=== PATIENT | female | born 1955 | race Caucasian/White ===

== ENCOUNTER 2016-06-18 07:03 | Day surgery (SDC) | payer BC ==
--- NOTE | 2016-05-31 16:45 | HP ---
ADMITTING HISTORY AND PHYSICAL: DATE OF ADMISSION/OPERATION: 06/18/16 ADMITTING DIAGNOSIS: Right renal calculus. PLANNED PROCEDURE: Shock wave lithotripsy of right renal calculus. SURGEON: Dr. Zimmerman. ADMITTING HISTORY AND PHYSICAL: Alix Millard is a 61-year-old lady with a history of recurrent renal calculi. She recently underwent a followup ultrasound, which showed that a previously noted calculus in the right kidney had increased in size. On the most recent ultrasound on 05/08/16, this was measured at being approximately 1.6 cm. KUB x-ray was obtained which showed the calculus to be smaller, so it is possible that the calculus may have a component of calcium and possibly uric acid which may make it appear bigger on the ultrasound than on the x-ray. In any case, because of the significant increase in size, she is now being brought in for shock wave lithotripsy after thorough discussion of the procedure and possible risks including bleeding, infection, injury to the kidney, and incomplete fragmentation. PAST MEDICAL HISTORY: Significant for renal calculi and environmental allergies. MEDICATIONS ON ADMISSION: Aixa-D once daily. ALLERGIES: SULFA. PHYSICAL EXAMINATION GENERAL: Reveals a pleasant, healthy-appearing lady. VITAL SIGNS: Blood pressure is 102/62, pulse 105 per minute, regular, oxygen saturation 95% on room air. LUNGS: Clear bilaterally. CARDIOVASCULAR: Regular rate and rhythm. S1, S2. ABDOMEN: Soft without masses. IMPRESSION AND PLAN: A 61-year-old lady with a right renal calculus which has increased in size. Planned procedure is shock wave lithotripsy of right renal calculus. I have discussed the procedure and possible risks in detail with Alix and she appears to understand and wishes to proceed as planned. [id number]/[facility] #: [id number] MTDD
[~2016-06-18 07:03] MED LIST: Buffered Lidocaine 1% SYRIN* 3 ML/SYR SYRINGE INTRADERM ONE; Dexamethasone IV* 4 MG/ML 1 ML (4 MG) IV SLOW PU ONE
[2016-06-18] MEDS ORDERED: cefTRIAXone(*) 2 GM ADDV.VIAL IVPB ONE (07:30)
[2016-06-18] MEDS ORDERED: Dexamethasone IV* 4 MG/ML 1 ML (4 MG) ONE (07:34)
--- NOTE | 2016-06-18 08:01 | RAD ---
INDICATION: Shockwave lithotripsy. COMPARISON: Comparison is made with a prior CT of the abdomen and pelvis from March 27 2014 and a prior KUB exam from May 29, 2016. TECHNIQUE: Frontal supine films of the abdomen were obtained. FINDINGS: The small bowel and colon appear nondistended. There is a 6 mm calcific density which projects over the lower pole of the right kidney most consistent with a renal calculus which is unchanged from the prior study. IMPRESSION: RIGHT RENAL CALCULUS.
[2016-06-18] MEDS ORDERED: fentaNYL* 50 MCG/ML 2 ML VIAL (100 MCG VIAL) IV PRN (09:09)
[2016-06-18] MEDS ORDERED: oxyCODONE/Acetamin 5/325 MG* TAB PO PRN (09:09)
[2016-06-18] MEDS ORDERED: HYDROcodone/ACETAMIN 5-325 MG* 1 TAB PO PRN (09:09)
[2016-06-18] MEDS ORDERED: PROCHLORPERAZINE INJ 5 MG/ML 2 ML VIAL IV PRN (09:09)
[2016-06-18] MEDS ORDERED: fentaNYL* 50 MCG/ML 2 ML VIAL (100 MCG VIAL) ONE (09:13)
[2016-06-18] MEDS ORDERED: Propofol* 10 MG/ML 20 ML BTL IV PUSH ONE (09:13)
[2016-06-18] MEDS ORDERED: Lidocaine 2% PF * 5 ML VIAL ONE (09:13)
[2016-06-18] MEDS ORDERED: Ondansetron INJ* 2 MG/ML VIAL ONE (09:36)
[2016-06-18] MEDS ORDERED: Furosemide IV* 10 MG/ML 2 ML VIAL (20 MG) ONE (09:43)
[2016-06-18 11:03] VITALS: BP 124/72
--- NOTE | 2016-06-18 22:51 | OP ---
DATE OF OPERATION: 06/18/16 - [facility] DATE OF : 53 SURGEON: Dr. Zimmerman. ANESTHESIOLOGIST: Dr. Lozano. ANESTHESIA: General. PRE-OP DIAGNOSIS: Right renal calculus. POST-OP DIAGNOSIS: Right renal calculus. OPERATIVE PROCEDURE: Shockwave lithotripsy of right renal calculus. COMPLICATIONS: None. POSTOPERATIVE CONDITION: Stable. INDICATIONS: Alix Millard is a 61-year-old lady who was recently evaluated and noted to have increase in the size of a previously detected right renal calculus. She desires treatment of the same and is now being brought in for shockwave lithotripsy. DESCRIPTION OF PROCEDURE: After induction of general anesthesia, the patient was placed on the lithotripsy table in the supine position. The calculus which was smaller on x-ray than on ultrasound was visualized on fluoroscopy and shockwave lithotripsy was commenced at a rate of 60 shocks per minute. After the initial 300 shocks, there was a brief pause in lithotripsy in an effort to minimize any potential trauma to the kidney. Lithotripsy was then resumed and periodic imaging revealed good localization and fragmentation. A total of 1600 shocks were administered. The patient tolerated the procedure satisfactorily and was transferred back to recovery area in stable condition. [id number]/[facility] #: [id number] MTDD
== END 2016-06-18 11:07 | disposition home or self-care (01) ==
LOC: OR 07:03
PROVIDERS: ATTEND Urology
DX: N20.0 Calculus of kidney (principal)
CPT/HCPCS: 74000; J0696; J1100; J1940; J2405; J2704; J3010

== ENCOUNTER 2016-11-25 10:34 | Emergency (ER) | payer BC ==
[2016-11-25 10:52] VITALS: BP 130/68
--- NOTE | 2016-11-25 12:21 | UC ---
Respiratory Complaint HPI - HPI Summary HPI Summary: history of environmental allergies treated by Dr. Martin with injections, and uses antihistamines. 2 days of increasing drainage and malaise, with some heaviness around the right muslim. Right eye tearing and injection with tacky discharge. Mild blurring with no photophobia. Coughing a little. - History of Current Complaint Chief Complaint: UCEye Stated Complaint: COMLD SYPMTOMS/RT EYE ISSUE Time Seen by Provider: 11/25/16 12:10 Hx Obtained From: Patient Hx Last Menstrual Period: had ablation Onset/Duration: Gradual Onset, Lasting Days - 2 Timing: Constant - right eye discharge. Persistent sinus symptoms --chronic. Severity Initially: Moderate Severity Currently: Moderate Associated Signs And Symptoms: Positive: Nasal Congestion, Hoarseness, Sinus Discomfort - Allergies/Home Medications Allergies/Adverse Reactions: Allergies Allergy/AdvReac Type Severity Reaction Status Date / Time Peanut Oil Allergy Severe Shortness Verified 11/25/16 10:44 of Breath Sulfa Drugs Allergy Severe Rash Verified 11/25/16 10:44 Adhesive Tape Allergy Mild Itching Verified 11/25/16 10:44 Latex Allergy Mild Itching Verified 11/25/16 10:44 Environmental Allergy "constant Uncoded 11/25/16 10:44 sinus infections" Home Medications: Home Medications Allergy Shots 2 each SUBCUT SEE INSTRUCTIONS 11/25/16 [History Confirmed ] LoraTADine TAB(NF) [Claritin 10 MG TAB(NF)] 10 mg PO DAILY PRN 11/25/16 [ History Confirmed 11/25/16] diPHENhydraMINE PO* [Benadryl PO 25 MG TAB*] 25 - 50 mg PO Q6H PRN 11/25/16 [ History Confirmed 11/25/16] PMH/Surg Hx/FS Hx/Imm Hx Previously Healthy: Yes - chronic allergies and sinusitis. - Surgical History Surgical History: Yes Surgery Procedure, Year, and Place: UTERINE ABLATION 2004 [place]. COLONOSCOPY 2009, 07/2015 [place]. LITHOTRIPSY LEFT RENAL CALCUL[place] 04/[place] [facility] [place] - Family History Known Family History: Positive: Other - mother of Alzheimer's disease. Father of stomach cancer. - Social History Occupation: Retired - teacher Alcohol Use: Occasionally Alcohol Amount: 1 DRINK/MONTH Substance Use Type: None Smoking Status (MU): Never Smoked Tobacco Have You Smoked in the Last Year: No - Immunization History Most Recent Influenza Vaccination: Not the 2016/2017 Season Review of Systems Constitutional: Fatigue Skin: Negative Eyes: Negative ENT: Sore Throat, Nasal Discharge, Sinus Congestion, Other - increasing drainage. Respiratory: Cough Cardiovascular: Negative Gastrointestinal: Negative Genitourinary: Negative Motor: Negative Neurovascular: Negative Musculoskeletal: Negative Neurological: Headache - mild, to right muslim. Psychological: Negative All Other Systems Reviewed And Are Negative: Yes Physical Exam Triage Information Reviewed: Yes Appearance: Ill-Appearing - looks mildly unwell. Vital Signs: Initial Vital Signs Temp 98.4 F 11/25/16 10:39 Pulse 90 11/25/16 10:39 Resp 16 11/25/16 10:39 BP 130/68 11/25/16 10:39 Pulse Ox 100 11/25/16 10:39 Eyes: Positive: Conjunctiva Inflamed - right injection, mild lower lid swelling. Scant drainage. ENT: Positive: Pharyngeal erythema, TMs normal Dental Exam: Normal Neck: Positive: Nontender, No Lymphadenopathy Respiratory: Positive: Lungs clear, Normal breath sounds Musculoskeletal Exam: Normal Neurological Exam: Normal Neurological: Positive: Alert, Muscle Tone Normal Psychological Exam: Normal Skin Exam: Normal UC Diagnostic Evaluation - Laboratory O2 Sat by Pulse Oximetry: 100 Respiratory Course/Dx - Course Course Of Treatment: continue allergy treatment and observation of sinus sx. No evidence of bacterial infection. Treatment of conjunctivitis with drops. Has problems administering, but prefers drops to ointment. - Differential Dx/Diagnosis Differential Diagnosis/HQI/PQRI: Laryngitis, Sinusitis, Other - conjunctivitis Provider Diagnoses: conjunctivitis right eye. environmental allergies. Discharge - Discharge Plan Condition: Stable Disposition: HOME Prescriptions: Tobramycin (Ophth) [Tobrex] 0.3 % OP QID #2 bottle Patient Education Materials: Conjunctivitis (ED) Referrals: No Primary Care Phys,NOPCP [Primary Care Provider] - Additional Instructions: Begin use of opthalmic drops to treat your infection, using 2 drops to the right eye, but begin treatment of the left eye if you develop symptoms on that side. Continue use of antihstamines, and increase rest. At this time, decision made to not treat sinus symptoms with antibiotics. Ensure increased rest and fluids.
== END 2016-11-25 12:41 | disposition home or self-care (01) ==
LOC: UCCORT 10:34
DX: H10.31 Unspecified acute conjunctivitis, right eye (principal); Z88.1 Allergy status to other antibiotic agents; Z91.040 Latex allergy status; Z91.048 Other nonmedicinal substance allergy status; Z91.010 Allergy to peanuts
CPT/HCPCS: 99212; G0463